=== PATIENT | male | born 1970 | race African-American/Black ===

== ENCOUNTER 2021-01-24 16:18 | Emergency (ER) | payer MEDICAID ==
[~2021-01-24] VITALS: Ht 177.8 cm; Wt 81.0 kg
[2021-01-24 16:37] VITALS: BP 113/77
== END 2021-01-24 17:40 | disposition home or self-care (01) ==
LOC: ER 16:18
DX: N52.9 Male erectile dysfunction, unspecified (principal); R03.0 Elevated blood-pressure reading, without diagnosis of hypertension
CPT/HCPCS: 99281

== ENCOUNTER 2021-04-20 10:09 | Emergency (ER) | payer MEDICAID ==
[~2021-04-20] VITALS: Ht 177.8 cm; Wt 75.0 kg
[2021-04-20 10:10] VITALS: BP 124/86
== END 2021-04-20 10:38 | disposition home or self-care (01) ==
LOC: ER 10:09
DX: N52.9 Male erectile dysfunction, unspecified (principal)
CPT/HCPCS: 99281